=== PATIENT | female | born 2005 | race Two or more races ===

== ENCOUNTER 2025-01-26 13:56 | Emergency (ER) | payer OTHER ==
[~2025-01-26] VITALS: Ht 160 cm; Wt 42.2 kg
[2025-01-26] MEDS ORDERED: ACETAMINOPHEN 500 MG GEL..CAP PO ONE ×2 (16:30→16:52)
[2025-01-26] MEDS ORDERED: KETOROLAC TROMETHAMINE 30 MG VIAL IV ONE (16:30)
[2025-01-26] MEDS ORDERED: FAMOTIDINE/PF 20 MG in 0.9 % SODIUM CHLORIDE 8 ML IV PUSH ONE (16:45)
[2025-01-26] MEDS ORDERED: ONDANSETRON HCL 4 MG in 0.9 % SODIUM CHLORIDE 50 ML IV ONE (16:45)
[2025-01-26] MEDS ORDERED: ONDANSETRON HCL 2 MG/ML VIAL ONE (16:52)
[2025-01-26] MEDS ORDERED: KETOROLAC TROMETHAMINE 30 MG VIAL ONE (16:52)
[2025-01-26] MEDS ORDERED: FAMOTIDINE/PF 20 MG/2 ML VIAL ONE (16:53)
[2025-01-26 17:27] LABS: BASO % 0.5 % (0.1-1.2); EOS # 0.01 (0.04-0.54); EOS % 0.1 % (0.7-7.0); LYMPH # 1.06 (1.18-3.74); LYMPH % 8.0 % (19.3-53.1); MEAN PLATELET VOLUME 10.20 fl (9.4-12.4); MONO # 0.61 (0.24-0.82); MONO % 4.6 % (4.7-12.5); NEUT # 11.49 (1.56-6.13); NEUT % 86.3 % (34.0-71.1); RED CELL DISTRIBUTION WIDTH 11.6 % (11.6-14.4)
[2025-01-26 17:41] LABS: INR 1.08
[2025-01-26 17:47] LABS: ALT/SGPT 25 U/L (12-78); AST/SGOT 16 U/L (15-37); BILIRUBIN TOTAL 0.60 mg/dL (0.3-1.2); BUN CREA RATIO 18 (7.0-25.0); CREATININE SERUM 0.71 mg/dL (0.55-1.02); GFR 103.91; GLOBULINA 4.1 G/DL (2.4-3.5); GLUCOSE FASTING 131 mg/dL (65-100); OSMOLALITY SERUM 283 MOSM/KG (275-295)
[2025-01-26 18:14] LABS: HCG QUANTITATIVE < 1 mUI/mL (1-3)
[2025-01-26 18:38] LABS: URINE APPEARANCE Clear; URINE BILIRRUBIN Negative (NEGATIVE); URINE BLOOD Negative; URINE COLOR Yellow; URINE GLUCOSE Negative (NEGATIVE); URINE KETONE Negative (NEGATIVE); URINE LEUKOCYTE Trace; URINE NITRATE Negative; URINE PROTEIN Trace (NEGATIVE); URINE UROBILINOGEN 1.0 E.U./dl
[2025-01-26 18:39] LABS: URINE BACTERIA 340.7 uL (0.0-1933); URINE EPITHELIAL CELLS 60.4 uL (0.0-38.8); URINE RBC 30.9 uL (0.0-20.8); URINE WBC 43.0 uL (0.0-23.2)
[2025-01-26 19:00] LABS: TYPE CELLS RENAL TUBULAR; URINE CAST 0.58 uL (0.0-1.40)
[2025-01-26] MEDS ORDERED: KETO10TA2 PO (19:40)
[2025-01-26] MEDS ORDERED: PEPCID AC20 MG PO (19:40)
== END 2025-01-26 20:45 | disposition home or self-care (01) ==
LOC: ER 13:56
PROVIDERS: General Practice
DX: R10.20 Pelvic and perineal pain unspecified side (principal)